=== PATIENT | male | born 1955 | race Caucasian/White ===

== ENCOUNTER 2019-05-19 08:50 | Outpatient (CLI) | payer MEDICARE, BC, SELFPAY ==
[2019-05-19 09:31] VITALS: BMI 26.0
--- NOTE | 2019-05-19 09:36 | ECG_ITS ---
NAME OF STUDY: LEXISCAN SESTAMIBI STRESS TEST INDICATION: Left Bundle Branch Block PROCEDURE: At the baseline, the blood pressure was 149/102 mmHg, oxygen saturation 95% with a heart rate of 95 bpm. The electrocardiogram showed sinus rhythm, normal axis. Left bundle branch block. The Lexiscan was infused over a period of 20 seconds. A total of 0.4 milligrams of Lexiscan was infused. The stress phase was continued for a total of 5 minutes. Heart rate at the end of the stress phase was 108 bpm, oxygen saturation 98% with a blood pressure 149/90 mmHg. The EKG at the peak infusion revealed sinus tachycardia with left bundle branch block. Sestamibi was injected 20 seconds after the Lexiscan infusion. Blood pressure at the end of the recovery phase was 160/89 mmHg, oxygen saturation 96% with a heart rate of 100 beats per minute. CONCLUSION: 1. Nondiagnostic EKG with Lexiscan infusion given underlying left bundle branch block. 2. No LexiScan induced chest pain or cardiac arrhythmia. 3. Normal blood pressure and heart rate response. 4. Sestamibi/sestamibi perfusion scan pending; see separate report. Electronically Signed On 05-20-2019 15:33:31 [employer] FLO[employer] COVERINGS by Yoselyn Ortiz M.D. [email or web address]
--- NOTE | 2019-05-19 09:36 | NMCV_ITS ---
NM troy perf SPECT r/s* [id number] Kurt Vallejo Age: 63 Gender: M : 1955 Exam Date: 05/19/2019 09:36 Ordering Phys: Yoselyn Ortiz MD ([email or web address]) Technologist: KARRI Steel Exam Location: [facility] Indications: LBBB STRESS TEST [facility] IMAGE PROTOCOL Rest/Stress 1 Lexiscan Day Radiopharmaceutical Dose (mCi) Administration Site Administered by Rest: Tc-99m 10.9 IV KARRI Alonzo Sestamibi Stress:Tc-99m 32.6 IV KARRI Alonzo Sestamibi Rest: 19-May-2019 60 Discovery 630 Stress: 19-May-2019 30 Discovery 630 0.4mg Lexiscan. Images obtained in supine and prone position. SPECT RESULTS Technical Quality: Excellent Raw Data Analysis: Normal Image Corrections: No attenuation or motion correction applied Summed Stress Score: 20 Summed Rest Score: 28 Summed Difference Score: 1 PERFUSION FINDINGS Large sized perfusion abnormality of moderate to severe severity of mid to apical anterior, septal, entire inferior and apical yeager on rest and stress images. FUNCTIONAL RESULTS (calculated via Gated SPECT) Stress Image LV EF (%): 19 Stress EDV (mL):382 TID: 1.01 Stress ESV (mL):308 FUNCTIONAL FINDINGS: The left ventricle is dilated. Transient Ischemia Dilatation of 1. There is severely reduced left ventricular global systolic function. The left ventricular ejection fraction is severely reduced with a value of 19%. Severe global hypokinesis with dyskinetic septal and apical yeager. Markedly increased end-diastolic volume of 382 mL and end-systolic volume of 308 mL. IMPRESSIONS 1. Large sized predominantly fixed perfusion abnormality of moderate to severe severity of mid to apical anterior, septal, entire inferior and apical yeager. 2. This may be suggestive of old myocardial infarction in left anterior descending artery/ right coronary artery territory or attenuation artifact. 3. The left ventricular ejection fraction is severely reduced with a value of 19%. 4. Severe global hypokinesis with dyskinetic septal and apical yeager. 5. No coronary ischemia based on the study. Yoselyn Ortiz MD (Electronically Signed) Final Date: 20 May 2019 17:30 S
[2019-05-19] MEDS: regadenoson 0.4 Mg/5 ml Syringe IVP (10:44)
--- NOTE | 2019-05-19 10:45 | SUR.PREOP ---
Patient reports no pain or discomfort prior to the start of the procedure.
[2019-05-19 11:04] VITALS: BP 160/89; PULSE 100
--- NOTE | 2019-05-19 12:45 | USCV_ITS ---
Kurt Vallejo Age: 63 Gender: M : 1955 Exam Date: 05/19/2019 09:36 Ordering Phys: Yoselyn Ortiz MD ([email or web address]) Technologist: Rosaline Mcgrath [place] [facility] [place]: CARDIAC MURMUR, LBBB BP: 139 / 69 HR: 84 Rhythm: Sinus Technical Quality: Adequate MEASUREMENTS (Male / Female) Normal Values 2D ECHO LV Diastolic Diameter PLAX 7.0 cm 4.2 - 5.9 / 3.9 - 5.3 cm LV Systolic Diameter PLAX 6.3 cm IVS Diastolic Thickness 1.3 cm 0.6 - 1.0 / 0.6 - 0.9 cm IVS Systolic Thickness 1.5 cm LVPW Diastolic Thickness 0.9 cm 0.6 - 1.0 / 0.6 - 0.9 cm LVPW Systolic Thickness 1.3 cm LVOT Diameter 2.1 cm LV Ejection Fraction 2D Teich 21.1 % LV Ejection Fraction MOD 2C 29.9 % LV Ejection Fraction 2C AL 29.8 % LA Diameter 3.9 cm LA Width 5.3 cm LA Height 5.8 cm RA Width 3.5 cm RA Height 3.7 cm Aorta at Sinotubular Diameter 2.9 cm M-MODE LV Diastolic Diameter MM 7.8 cm 4.2 - 5.9 / 3.9 - 5.3 cm LV Systolic Diameter MM 7.4 cm LV Ejection Fraction MM Teich 10.3 % IVS Diastolic Thickness MM 1.0 cm 0.6 - 1.0 / 0.6 - 0.9 cm IVS Systolic Thickness MM 0.9 cm LVPW Diastolic Thickness MM 0.7 cm 0.6 - 1.0 / 0.6 - 0.9 cm LVPW Systolic Thickness MM 1.5 cm Aortic Annulus Diameter 3.8 cm LA Ao Ratio MM 1.0 MV E Point Septal Separation 2.4 cm DOPPLER AV Peak Velocity 124.0 cm/s LVOT Peak Velocity 74.0 cm/s AV Area Cont Eq vti 1.8 cm squared AV Area Cont Eq pk 2.0 cm squared MV Area PHT 4.2 cm squared Mitral E to A Ratio 1.1 MV E' Velocity 12.0 cm/s Mitral E to MV E' Ratio 8.8 Mitral E to LV E' Lateral Ratio 7.6 Mitral E to LV E' Septal Ratio 10.4 TR Peak Velocity 276.0 cm/s TR Peak Gradient 30.5 mmHg TR Mean Velocity 177.8 cm/s TR Mean Gradient 15.3 mmHg TR Velocity Time Integral 65.2 cm TV Peak E Velocity 61.0 cm/s Right Atrial Pressure 3.0 mmHg Pulmonary Artery Systolic Pressu 33.5 mmHg PV Peak Velocity 101.0 cm/s RV Acceleration Time 0.1 s RV Ejection Time 0.3 s RV AcT/ET 0.3 FINDINGS Left Ventricle Severely dilated left ventricular cavity (LVIDd=7 cm). Severely decreased left ventricular systolic function. Left ventricular ejection fraction is estimated at 20%. Severe diffuse hypokinesis with relative sparing of basal inferolateral wall. Abnormal septal motion consistent with conduction abnormality. Right Ventricle Normal right ventricular size and systolic function. Right ventricular systolic pressure 33.5 mmHg. Right Atrium Normal right atrial size. Left Atrium Moderately increased left atrial size. Mitral Valve Structurally normal mitral valve. No mitral valve stenosis. Moderate mitral valve regurgitation. Aortic Valve Structurally normal trileaflet aortic valve. No aortic valve stenosis. Trace aortic valve regurgitation. Tricuspid Valve Structurally normal tricuspid valve. Mild tricuspid valve regurgitation. Pulmonic Valve Structurally normal pulmonic valve. No pulmonary valve stenosis. Mild pulmonary valve regurgitation. Pericardium No pericardial effusion. Aorta Normal-sized aortic root. CONCLUSIONS 1. Severely dilated left ventricular cavity (LVIDd=7 cm). Severely decreased left ventricular systolic function with ejection fraction estimated at 20%. Severe diffuse hypokinesis with relative sparing of basal inferolateral wall. 2. Normal right ventricular size and systolic function. 3. Moderately increased left atrial size. 4. Moderate mitral valve regurgitation. 5. No prior similar studies to compare. Yoselyn Ortiz MD (Electronically Signed) Final Date: 20 May 2019 17:32 S
== END 2019-05-19 08:51 | disposition home or self-care (01) ==
PROVIDERS: Visit Provider Internal Medicine Cardiovascular Disease
DX: I44.7 Left bundle-branch block, unspecified (principal); R01.1 Cardiac murmur, unspecified; I08.3 Combined rheumatic disorders of mitral, aortic and tricuspid valves
CPT/HCPCS: 78452; 93017; 93306; A9500; J2785

== ENCOUNTER → 2019-05-31 10:38 | Outpatient (BNVA) | payer MEDICARE, BC, SELFPAY | PROVIDERS: Visit Provider Internal Medicine Cardiovascular Disease | DX: I44.7 Left bundle-branch block, unspecified (principal); R01.1 Cardiac murmur, unspecified; I42.9 Cardiomyopathy, unspecified | CPT/HCPCS: 80048; 83735; 83880 ==

== ENCOUNTER 2019-08-18 10:10 | Outpatient (CLI) | payer MEDICARE, SELFPAY ==
--- NOTE | 2019-08-18 10:20 | USCV_ITS ---
Kurt Vallejo Age: 64 Gender: M : 1955 Exam Date: 08/18/2019 10:34 Ordering Phys: Yoselyn Ortiz MD ([email or web address]) Technologist: Cinthya Raza Exam Location: [facility] [place] Indication: CARDIOMYOPATHY BP: 126 / 73 HR: 73 Rhythm: Sinus Technical Quality: Adequate MEASUREMENTS (Male / Female) Normal Values 2D ECHO LV Diastolic Diameter PLAX 6.0 cm 4.2 - 5.9 / 3.9 - 5.3 cm LV Systolic Diameter PLAX 5.8 cm LV Chamber Size 5.2 cm IVS Diastolic Thickness 1.3 cm 0.6 - 1.0 / 0.6 - 0.9 cm IVS Systolic Thickness 1.3 cm LVPW Diastolic Thickness 1.7 cm 0.6 - 1.0 / 0.6 - 0.9 cm LVPW Systolic Thickness 2.4 cm RV Chamber Size 2.4 cm LVOT Diameter 2.0 cm LV Ejection Fraction 2D Teich 8.5 % LV Ejection Fraction MOD 2C 17.1 % LV Ejection Fraction 2C AL 15.2 % LA Diameter 3.6 cm LA Width 4.6 cm LA Height 4.6 cm RA Width 3.2 cm RA Height 3.8 cm Aorta at Sinotubular Diameter 3.1 cm M-MODE LV Diastolic Diameter MM 6.2 cm 4.2 - 5.9 / 3.9 - 5.3 cm LV Systolic Diameter MM 5.8 cm LV Ejection Fraction MM Teich 13.8 % IVS Diastolic Thickness MM 1.1 cm 0.6 - 1.0 / 0.6 - 0.9 cm IVS Systolic Thickness MM 1.3 cm LVPW Diastolic Thickness MM 1.5 cm 0.6 - 1.0 / 0.6 - 0.9 cm LVPW Systolic Thickness MM 1.6 cm Aortic Annulus Diameter 3.8 cm LA Ao Ratio MM 0.9 MV E Point Septal Separation 2.3 cm DOPPLER AV Peak Velocity 139.0 cm/s LVOT Peak Velocity 101.0 cm/s AV Area Cont Eq vti 2.1 cm squared AV Area Cont Eq pk 2.3 cm squared MV Area PHT 14.7 cm squared Mitral E to A Ratio 0.8 MV E' Velocity 11.0 cm/s Mitral E to MV E' Ratio 6.2 Mitral E to LV E' Lateral Ratio 5.5 Mitral E to LV E' Septal Ratio 7.1 TR Peak Velocity 251.0 cm/s TR Peak Gradient 25.3 mmHg TV Peak E Velocity 99.0 cm/s Right Atrial Pressure 3.0 mmHg Pulmonary Artery Systolic Pressu 28.2 mmHg PV Peak Velocity 118.0 cm/s RV Acceleration Time 0.2 s RV Ejection Time 0.4 s RV AcT/ET 0.4 FINDINGS Left Ventricle Moderately dilated left ventricular cavity. Severely decreased left ventricle systolic function. Left ventricular ejection fraction estimated at 25%. Severe global hypokinesis with relative sparing of basal to mid inferolateral wall. Grade I diastolic dysfunction (abnormal relaxation filling pattern), normal to mildly elevated filling pressures. Abnormal septal motion consistent with conduction abnormality. Right Ventricle Normal right ventricular size and systolic function. Right ventricular systolic pressure 28.2 mmHg. Right Atrium Right atrial pressure estimated at 3 mmHg. Left Atrium Mildly increased left atrial size. Mitral Valve Structurally normal mitral valve. Mild mitral valve regurgitation. Aortic Valve Aortic valve not well visualized. No aortic valve stenosis. Trace aortic valve regurgitation. Tricuspid Valve Structurally normal tricuspid valve. Mild tricuspid valve regurgitation. Pulmonic Valve Pulmonic valve not well visualized. Pericardium No pericardial effusion. Aorta Normal sized aortic root. CONCLUSIONS 1. Moderately dilated left ventricular cavity. Severely decreased left ventricle systolic function. Left ventricular ejection fraction estimated at 25%. Severe global hypokinesis with relative sparing of basal to mid inferolateral wall. Grade I diastolic dysfunction (abnormal relaxation filling pattern), normal to mildly elevated filling pressures. 2. Mild mitral and tricuspid valve regurgitation. 3. Pulmonary artery pressure estimated at 28 mmHg. 4. When compared to previous echocardiogram dated 05/19/2019, left ventricle systolic function may have improved slightly. Yoselyn Ortiz MD (Electronically Signed) Final Date: 22 August 2019 17:00 S
== END 2019-08-18 10:11 | disposition home or self-care (01) ==
LOC: RAD 10:13
PROVIDERS: Visit Provider Internal Medicine Cardiovascular Disease
DX: I42.9 Cardiomyopathy, unspecified (principal); I34.0 Nonrheumatic mitral (valve) insufficiency; I07.1 Rheumatic tricuspid insufficiency
CPT/HCPCS: 93306

== ENCOUNTER 2019-11-19 12:21 | Outpatient (CLI) | payer MEDICARE, OTHER, SELFPAY ==
--- NOTE | 2019-11-19 12:45 | USCV_ITS ---
Kurt Vallejo Age: 64 Gender: M : 1955 Exam Date: 11/19/2019 12:24 Ordering Phys: Yoselyn Ortiz MD ([email or web address]) Technologist: Ayo Pierce [place] [facility] [place]ication: LV function, h/o cardiomyopathy BP: 110 / 60 HR: 91 Rhythm: Sinus Technical Quality: Good MEASUREMENTS (Male / Female) Normal Values 2D ECHO LV Diastolic Diameter PLAX 5.8 cm 4.2 - 5.9 / 3.9 - 5.3 cm LV Systolic Diameter PLAX 4.8 cm IVS Diastolic Thickness 1.2 cm 0.6 - 1.0 / 0.6 - 0.9 cm IVS Systolic Thickness 1.5 cm LVPW Diastolic Thickness 1.3 cm 0.6 - 1.0 / 0.6 - 0.9 cm LVPW Systolic Thickness 1.2 cm LVOT Diameter 2.1 cm LV Ejection Fraction 2D Teich 33.6 % LV Ejection Fraction MOD 2C 46.5 % LV Ejection Fraction 2C AL 47.6 % LA Diameter 3.9 cm LA Width 3.7 cm LA Height 4.4 cm RA Width 2.9 cm RA Height 3.0 cm Aorta at Sinotubular Diameter 1.2 cm M-MODE LV Diastolic Diameter MM 7.2 cm 4.2 - 5.9 / 3.9 - 5.3 cm LV Systolic Diameter MM 5.9 cm LV Ejection Fraction MM Teich 36.1 % IVS Diastolic Thickness MM 0.9 cm 0.6 - 1.0 / 0.6 - 0.9 cm IVS Systolic Thickness MM 1.6 cm LVPW Diastolic Thickness MM 1.0 cm 0.6 - 1.0 / 0.6 - 0.9 cm LVPW Systolic Thickness MM 1.7 cm RV Diastolic Diameter MM 0.8 cm Aortic Annulus Diameter 4.0 cm LA Ao Ratio MM 1.0 MV E Point Septal Separation 3.3 cm FINDINGS Left Ventricle Moderately dilated left ventricle. Severely decreased left ventricular systolic function. Left ventricular ejection fraction is estimated at 25-30 %. Severe global hypokinesis. Abnormal septal motion consistent with conduction abnormality. Right Ventricle Normal right ventricular size and systolic function. Right Atrium Normal right atrial size. Left Atrium Normal left atrial size. Mitral Valve Thickened mitral valve. Aortic Valve Structurally normal trileaflet aortic valve. Tricuspid Valve Structurally normal tricuspid valve. Trace tricuspid valve regurgitation. Pulmonic Valve Pulmonic valve not well visualized. Pericardium No pericardial effusion. Aorta Normal sized aortic root. CONCLUSIONS 1. Moderately dilated left ventricle. Severely decreased left ventricular systolic function. Left ventricular ejection fraction is estimated at 25-30 %. Severe global hypokinesis. 2. Normal right ventricular size and systolic function. 3. When compared to previous echocardiogram dated 08/18/19, there has been no significant change. Yoselyn Ortiz MD (Electronically Signed) Final Date: 22 November 2019 10:53 S
== END 2019-11-19 12:22 | disposition home or self-care (01) ==
LOC: RAD 12:27
PROVIDERS: Visit Provider Internal Medicine Cardiovascular Disease
DX: I42.9 Cardiomyopathy, unspecified (principal)
CPT/HCPCS: 93308

== ENCOUNTER → 2022-04-01 14:09 | Outpatient (BNVA) | payer MEDICARE, OTHER, SELFPAY | PROVIDERS: Visit Provider Internal Medicine Cardiovascular Disease | DX: I25.5 Ischemic cardiomyopathy (principal); I34.0 Nonrheumatic mitral (valve) insufficiency; I25.10 Atherosclerotic heart disease of native coronary artery without angina pectoris | CPT/HCPCS: 99214; Q3014 ==

== ENCOUNTER → 2022-11-21 12:49 | Outpatient (BNVA) | payer MEDICARE, OTHER, SELFPAY | PROVIDERS: Visit Provider Internal Medicine Cardiovascular Disease | DX: Z45.02 Encounter for adjustment and management of automatic implantable cardiac defibrillator (principal) | CPT/HCPCS: 93296 ==

== ENCOUNTER → 2023-05-12 14:24 | Outpatient (BNVA) | payer MEDICARE, OTHER, SELFPAY | PROVIDERS: PCP Nurse Practitioner Family; Visit Provider Internal Medicine | DX: I44.7 Left bundle-branch block, unspecified (principal); I25.5 Ischemic cardiomyopathy; I34.0 Nonrheumatic mitral (valve) insufficiency; I25.10 Atherosclerotic heart disease of native coronary artery without angina pectoris | CPT/HCPCS: 99214 ==

== ENCOUNTER 2023-05-21 08:09 | Outpatient (CLI) | payer MEDICARE, OTHER, SELFPAY ==
--- NOTE | 2023-05-21 08:30 | USCV_ITS ---
GuilleelviaKurt Age: 67 Gender: M : 1955 Exam Date: 05/21/2023 08:23 Ordering Phys: Kodi Aaron M.D ([email or web address]) Technologist: [place] [facility] [place] cp BP: 117 / 68 HR: 0 Rhythm: Sinus Technical Quality: Adequate MEASUREMENTS (Male / Female) Normal Values 2D ECHO LV Diastolic Diameter PLAX 5.3 cm 4.2 - 5.9 / 3.9 - 5.3 cm IVS Diastolic Thickness 1.4 cm 0.6 - 1.0 / 0.6 - 0.9 cm IVS Systolic Thickness 1.9 cm LVPW Diastolic Thickness 0.9 cm 0.6 - 1.0 / 0.6 - 0.9 cm LVPW Systolic Thickness 1.6 cm LVOT Diameter 2.0 cm LV Ejection Fraction 2D Teich 57.1 % LV Ejection Fraction MOD 2C 53.5 % LA Diameter 3.8 cm RA Systolic Volume 4C AL 40.0 ml RA Systolic Volume 4C MOD 38.1 ml Aorta at Sinotubular Diameter 3.8 cm IVC Diameter 2.1 cm M-MODE LA Ao Ratio MM 1.5 AV Cusp Separation MM 2.5 cm DOPPLER AV Peak Velocity 113.0 cm/s LVOT Peak Velocity 112.0 cm/s AV Area Cont Eq vti 3.2 cm squared AV Area Cont Eq pk 3.1 cm squared MV Peak Velocity 70.0 cm/s MV Area PHT 2.6 cm squared Mitral E to A Ratio 2.2 TV Peak Velocity 197.5 cm/s TR Peak Velocity 241.0 cm/s TR Peak Gradient 23.2 mmHg Right Atrial Pressure 3.0 mmHg Pulmonary Artery Systolic Pressu 26.2 mmHg PV Peak Velocity 111.0 cm/s FINDINGS Left Ventricle Left ventricle is normal in size. LV systolic function is normal with EF of 55 to 60%. No regional wall motion abnormalities are seen. Right Ventricle Normal in size and function Right Atrium Normal in size Left Atrium Dilated Mitral Valve Structurally normal mitral valve. Mild mitral regurgitation. Aortic Valve Structurally normal aortic valve. No significant stenosis or regurgitation. Tricuspid Valve Mild tricuspid regurgitation. Pulmonary artery systolic pressure is normal Pulmonic Valve Not well visualized Pericardium Normal Aorta Ascending aorta is dilated IVC Appears to be normal CONCLUSIONS LV systolic function is normal with EF of 55 to 60%. Left atrium is dilated. 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 Patient also has mildly dilated ascending aorta Kodi Aaron MD (Electronically Signed) Final Date: 04 June 2023 12:36 S
== END 2023-05-21 08:10 | disposition home or self-care (01) ==
LOC: RAD 08:10
PROVIDERS: PCP Nurse Practitioner Family; Visit Provider Internal Medicine
DX: R07.9 Chest pain, unspecified (principal); R06.02 Shortness of breath; I44.7 Left bundle-branch block, unspecified
CPT/HCPCS: 93306

== ENCOUNTER → 2023-11-14 15:43 | Outpatient (BNVA) | payer MEDICARE, OTHER, SELFPAY | PROVIDERS: PCP Nurse Practitioner Family; Visit Provider Nurse Practitioner Family | DX: S83.92XA Sprain of unspecified site of left knee, initial encounter (principal); M17.12 Unilateral primary osteoarthritis, left knee; M25.462 Effusion, left knee; X58.XXXA Exposure to other specified factors, initial encounter | CPT/HCPCS: 73562 ==

== ENCOUNTER → 2024-05-10 14:08 | Outpatient (BNVA) | payer MEDICARE, OTHER, SELFPAY | PROVIDERS: PCP Nurse Practitioner Family; Visit Provider Internal Medicine | DX: I44.7 Left bundle-branch block, unspecified (principal); I25.5 Ischemic cardiomyopathy; I34.0 Nonrheumatic mitral (valve) insufficiency; I25.10 Atherosclerotic heart disease of native coronary artery without angina pectoris; Z95.0 Presence of cardiac pacemaker | CPT/HCPCS: 99213 ==